=== PATIENT | male | born 1970 ===

== ENCOUNTER → 2018-07-13 | Outpatient (CLI) | payer OTHER ==
[2018-07-16 01:10] LABS: CHLAMYDIA TRACHOMATIS, NAA Negative (Negative); NEISSERIA GONORRHOEAE, NAA Negative (Negative)
== END | disposition home or self-care (01) ==
LOC: LAB SHORT 17:57 → LAB EV 17:57
PROVIDERS: Physician Assistant
DX: B37.49 Other urogenital candidiasis (principal)
CPT/HCPCS: 87070; 87205; 87491; 87591